=== PATIENT | female | born 1930 | race Caucasian/White ===

== ENCOUNTER → 2016-12-09 | Day surgery (SDC) | payer OTHER ==
[~2016-12-09] MED LIST: APIX5TAB PO; BUPIVACAINE/EPINEPHRINE 0.25% PF 10 ML VIAL ONE; CALC-65 PO; CORE25TA PO; DIGO0.25 PO; FURO1TAB93 PO; Hydrocodone/Acetaminophen PO; LACTATED RINGER'S 1000 ML INJ 1,000 ML ONE; ONDANSETRON HCL 4 MG/2 ML VIAL IV PUSH ONE; PERI8.6T PO; PROPOFOL 100 MG/10 ML INJ IV ONE; SODIUM CHLOR 0.9% 1000 ML BAG IV ONE; TAZT240C2 PO; TIMO0.5S29 EACH EYE; Z.0.WALKERFRONT; ceFAZolin INJ 1,000 MG VIAL ONE
--- NOTE | 2016-12-09 12:25 | TN ---
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 PROCEDURE 1. Wide local excision of melanoma in situ left upper back 4 cm x 2 cm with simple closure. 2. Wide excision of melanoma in situ left medial ye 2 cm x 2 cm with placement of Cellerate biologic dressing. 3. Wide excision of left anterior ye melanoma in situ 2 cm x 2 cm with placement of Cellerate biologic dressing. 4. Wide excision of left anterior lateral melanoma in situ 2 cm x 2 cm with placement of Cellerate biologic wound dressing. ATTENDING SURGEON Dr. Urbano. MAINTENANCE JOB TITLES Staff. ANESTHESIA General and local anesthetic. BLOOD LOSS Less and 10 ccs. COMPLICATIONS None. FINDINGS Residual pigmentation at all four melanoma in situ areas with grossly 5 mm margins around every area of pigmentation at all locations. INDICATIONS FOR PROCEDURE The patient is a 86-year-old female with history of melanoma, who developed three areas of melanoma in situ on her left anterior medial and lateral ye as well as area on her left upper back. Discussion with the patient about the treatment options occluding plastic surgery for closure of the wounds, the patient did elect to undergo attempted closure but if the areas were unable to close she elected to undergo placement of Cellerate biologic dressing with secondary intention wound healing. The risks, benefits, alternatives to wide excision and wound care versus closure versus plastic surgery type procedures were discussed with the patient and family and she elected to undergo the procedure. PROCEDURE After informed consent was obtained, the patient was taken to the operating room, placed in supine position, placed under general anesthesia. The patient's left leg from the knee to the ankle was prepped and draped in sterile fashion. Time-out was performed. We instilled local anesthetic throughout the three areas of the left anterior ye. We then excised each of these with a 15 blade scalpel through the skin and used Bovie electrocautery at the subcutaneous tissue, down to the anterior fascia. All three areas were marked with a stitch superior and passed off separate with specimens as melanoma in situ. We were careful to get at least 5 mm around all the pigmentation and/or shave biopsy sites of all the lesions. We had excellent hemostasis. We then placed the Cellerate dressing into the wound per restaurant attendant's recommendations, placed a long-term dressing with Xeroform and gauze and Kerlix wrap. At this point in time the patient was then turned to the right decubitus position. The back was prepped and draped in sterile fashion. The area of the left upper back lesion was identified and lidocaine was instilled in this area. We excised in elliptical type fashion with a 4 cm x 2 cm elliptical incision getting at least a 5 mm margin around the residual pigmentation as well as the shave biopsy scar. This was labeled a stitch superior and passed off for permanent processing. We had excellent hemostasis with Bovie electrocautery. We closed the skin with three 3-0 deep dermal Vicryl sutures followed by 4-0 Monocryl and Dermabond. The patient at this point in time was placed back to the supine position, discontinued from anesthesia and taken to the PACU in stable condition. The patient tolerated the procedure well. No apparent complications. All counts were correct. I was present and scrubbed for the entire procedure. MD MANDA AlexandraG/TLL /11:58 AM /12:07 PM
== END | disposition home or self-care (01) ==
LOC: ESDC 07:56
PROVIDERS: ATTEND Surgery
DX: D03.72 Melanoma in situ of left lower limb, including hip (principal); D03.59 Melanoma in situ of other part of trunk
CPT/HCPCS: 00300; 00400; 11602; 11604; 88305; A6010; J0690; J2405; J3010; J7030; J7120